=== PATIENT | female | born 1945 | race Caucasian/White ===

== ENCOUNTER 2017-02-27 03:58 | Observation (INO) | payer MEDICARE ==
[2017-02-27 06:12] LABS: Troponin I 0.011 ng/mL (< 0.028)
[2017-02-27 06:34] VITALS: BMI 26.8
[2017-02-27] MEDS ORDERED: Ondansetron ODT 4 MG TAB PO PRN (07:37)
[2017-02-27] MEDS ORDERED: Calcium Carbonate 500 MG ChewTAB PO PRN (07:37)
[2017-02-27] MEDS ORDERED: Acetaminophen 325 MG TAB PO PRN (07:37)
[2017-02-27] MEDS ORDERED: Nitroglycerin 0.4 MG TAB (25 Tab Bottle) PO PRN (07:37)
[2017-02-27] MEDS ORDERED: Ondansetron HCl/PF 4 MG/2 ML Vial IVP PRN (07:37)
[2017-02-27] MEDS ORDERED: Senokot 8.6 MG TAB PO PRN (07:37)
[2017-02-27] MEDS ORDERED: HYDROcodone/Acetaminophen 10/325 mg Tablet PO PRN (07:40)
--- NOTE | 2017-02-27 07:52 | PDOC.EVN ---
Event Note - Event Note Event Note: Patient seen and examined. Note dictated. Full code. DPOA - makes her own dec with the help of family.
--- NOTE | 2017-02-27 08:13 | HP ---
DATE OF ADMISSION: 02/27/2017 PRIMARY CARE PHYSICIAN: Dr. Roy. PRIMARY LINE MANAGER: Dr. Siegel. REASON FOR COMPLAINT: Chest discomfort. HISTORY OF PRESENT ILLNESS: Patient is a 71-year-old female with coronary artery disease status pos t CABG, colon cancer on chemotherapy, hypertension, and hyperlipidemia who presented to the emergenc y room with chest discomfort. She initially presented to [facility] and was transferred to [facility] facility for hospital admission. The chest discomfort woke her up from sleep last night. It was substernal, moderate to severe in in tensity, sharp in nature, radiating to bilateral ribs on either side. She had transient diaphoresis along with dizziness and nausea. No syncope reported. Over the last two weeks, patient has not be en ambulating much due to generalized weakness which she attributes to chemotherapy. She denies any lower extremity swelling, pain in the legs, orthopnea or paroxysmal nocturnal dyspnea. No fevers o r chills reported. No heartburn or vomiting reported. In the emergency room, she received GI cocktail with aspirin, Zofran, morphine, and sublingual nitro glycerin after which her pain completely resolved. PAST MEDICAL HISTORY: 1. Coronary artery disease, status post CABG. Her last cath was in 2014. She is currently on aspi rin and Plavix. 2. Hypertension. 3. Hyperlipidemia. 4. Colon cancer on chemotherapy. 5. 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 PAST SURGICAL HISTORY: 1. Coronary artery bypass grafting. 2. MediPort placement. 3. Colectomy. 4. Hysterectomy. 5. Nose surgery. ALLERGIES: No known drug allergies. CURRENT HOME MEDICATIONS: Aspirin 81 mg daily, Plavix 75 mg daily, Lipitor 40 mg at bedtime, carved ilol 12.5 mg b.i.d., cetirizine 10 mg daily, Dina 180 mg daily, Neurontin 300 mg three times demian y, [place] as needed, hydrochlorothiazide 25 mg daily, lisinopril 20 mg daily, sublingual nitroglyceri n as needed, and omeprazole 20 mg daily. SOCIAL HISTORY: Patient currently lives at home. Denies current use of smoking, alcohol or drug us e. FAMILY HISTORY: Positive for heart disease and malignancy. REVIEW OF SYSTEMS: The following complete review of systems was negative, unless otherwise mentione d in the HPI or below: Constitutional: Weight loss or gain, ability to conduct usual activities. Skin: Rash, itching. Eyes: Double vision, pain. ENT/Mouth: Nose bleeding, neck stiffness, pain, tenderness. Cardiovascular: Palpitations, dyspnea on exertion, orthopnea. Respiratory: Shortness of breath, wheezing, cough, hemoptysis, fever or night sweats. Gastrointestinal: Poor appetite, abdominal pain, heartburn, nausea, vomiting, constipation, or diar andres. Genitourinary: Urgency, frequency, dysuria, nocturia. Musculoskeletal: Pain, swelling. Neurologic/Psychiatric: Anxiety, depression. Allergy/Immunologic: Skin rash, bleeding tendency. PHYSICAL EXAMINATION: VITAL SIGNS: Temperature 98.1, pulse rate of 86, respiration 18, blood pressure 146/81 with O2 satu ration 95% on room air. GENERAL: A 71-year-old female in no apparent distress. Chest discomfort resolved. HEENT: Head is atraumatic, normocephalic. Sclerae are anicteric. Moist mucous membranes. No oral lesion. NECK: Supple, no JVD, no carotid bruit. LUNGS: Clear to auscultation bilaterally. HEART: S1 and S2 present. Regular rate and rhythm. No murmurs, rubs or gallops appreciated. ABDOMEN: Soft, nontender, bowel sounds present. EXTREMITIES: No edema or calf tenderness. NEUROLOGIC: Grossly nonfocal, moves all four extremities. PSYCHIATRY: Alert, awake, and oriented x3. SKIN: Warm and dry. LYMPH NODES: No palpable lymph nodes in the neck. PERIPHERAL VASCULAR: Radial pulses palpable bilaterally. MUSCULOSKELETAL: No joint swelling or tenderness. LABORATORY FINDINGS AND IMAGIN. Troponins were normal. Electrolytes in normal range. CBC showed WBC 4.6 with hemoglobin 10.9, platelet 158, and creatinine was 0.89 with BUN 12. BNP 67.9. 2. Chest x-ray by my review was negative for infiltrate or edema. 3. EKG by my review showed S1, Q3, T3 pattern with nonspecific ST-T wave changes in the lateral loni ds. IMPRESSION: 1. Chest discomfort. Her two sets of troponins have been negative. Due to abnormal EKG with S1, Q 3, T3 pattern, we will rule out pulmonary embolism with CT angiogram of the chest. We will start he r on gentle IV hydration due to contrast. We will resume her aspirin and Plavix with beta riccardo a nd statins. We will hold HCTZ and continue lisinopril for now. The patient will be kept n.p.o. Ca rdiology, Dr. Siegel will be consulted. 2. History of colon cancer with last chemotherapy 2 weeks ago. 3. Hypertension. Plan as discussed above. 4. Hyperlipidemia as discussed above. 5. Seasonal allergies. 6. Chronic kidney disease stage 2. Plan of care was discussed with the patient. She stated understanding.
[2017-02-27] MEDS ORDERED: Aspirin 325 MG TAB PO SCH (09:00)
[2017-02-27] MEDS: Sodium Chloride 0.9% 1,000 ML IV SCH ×2 (09:10→19:28)
[2017-02-27] MEDS: Clopidogrel Bisulfate 75 MG TAB PO SCH (09:12)
[2017-02-27] MEDS: Aspirin 81 mg Enteric Coated Tablet PO SCH (09:12)
[2017-02-27] MEDS: Carvedilol 6.25 MG TAB PO SCH ×2 (09:12→20:54)
[2017-02-27] MEDS: Gabapentin 300 MG CAP PO SCH ×3 (09:12→20:54)
[2017-02-27] MEDS: Lisinopril 20 MG TAB PO SCH (09:13)
[2017-02-27] MEDS: Loratadine 10 MG TAB PO SCH (09:13)
[2017-02-27] MEDS: Famotidine 20 MG TAB PO SCH ×2 (09:13→20:54)
--- NOTE | 2017-02-27 11:12 | CT ---
CT PULMONARY ANGIOGRAM WITH IV CONTRAST AND 3D POSTPROCESSING: Date: 02/27/17 HISTORY: 71-year-old female with colon cancer, shortness of breath, and chest pain. FINDINGS: The pulmonary arterial vasculature is well opacified without filling defects to suggest pulmonary em bolism. The thoracic aorta is also well opacified without aneurysm or dissection. No pleural or yani cardial effusions are seen. Numerous bilateral parenchymal lung nodules are noted (measuring up to 1 .0 cm), consistent with pulmonary metastasis. There are degenerative changes in the spine. There are postop changes of median sternotomy. A right-sided Port-A-Cath is present. Upper abdominal tomogram s demonstrate a stable left adrenal nodule since CT abdomen and pelvis of 10/12/16. There is a low d ensity lesion in the inferior aspect of the right lobe of the liver, also suspicious for metastatic disease. IMPRESSION: 1. No CT evidence of pulmonary embolism. 2. Extensive bilateral pulmonary metastases. 3. Liver metastasis. 4. Stable left adrenal nodule since 10/12/16. POS: [facility]
[2017-02-27 12:05] LABS: Troponin I 0.021 ng/mL (< 0.028)
[2017-02-27] MEDS ORDERED: Iopamidol 370 76% 100 ML VIAL ONE (15:42)
[2017-02-27] MEDS ORDERED: Communication Order-Pharmacy FS SCH (18:30)
[2017-02-27] MEDS ORDERED: Atorvastatin Calcium 40 MG TAB PO SCH (21:00)
--- NOTE | 2017-02-27 22:02 | CON ---
DATE OF CONSULTATION: 02/27/2017 Ms. Mcfarlane is a pleasant patient with a history of coronary artery disease and previous bypass surge ry. She has had multiple episodes of severe chest pain. She is having severe chest pain in 07/2014 . Ultimately, she underwent cardiac catheterization and was found to have essentially three-vessel coronary artery disease with a proximal LAD lesion, but she had a patent vein graft to a diagonal an d internal mammary to LAD. Circumflex small with some distal disease. Right coronary is occluded a nd filled by collaterals from the left. The patient had some episodes of severe chest pain a few months ago here in the hospital, but then d id well, but then she had recurrent severe chest pain prompting this admission. The patient has had a colon cancer, is undergoing maintenance chemotherapy according to the patient. PHYSICAL EXAMINATION: VITAL SIGNS: Blood pressure 103/51, pulse 70, regular. LUNGS: Clear. CARDIAC: Normal S1, normal S2. ABDOMEN: Soft, nontender. EXTREMITIES: No edema. EKG sinus rhythm with T-wave inversions anteriorly. ASSESSMENT: 1. Recurrent chest tightness. Clinically sounds like unstable angina. 2. Previous bypass surgery. 3. Colon cancer, metastatic. PLAN: Intractable and recurrent pain, we are proceeding with catheterization. Discussed risks of s elvin, heart attack, IODINE allergy, loss of blood supply to the leg or kidney, stent thrombosis, st ent restenosis. She understands and wishes to proceed.
[2017-02-28] MEDS: Loratadine 10 MG TAB PO SCH (05:00)
[2017-02-28] MEDS: Aspirin 81 mg Enteric Coated Tablet PO SCH (05:00)
[2017-02-28] MEDS: Carvedilol 6.25 MG TAB PO SCH (05:00)
[2017-02-28] MEDS: Gabapentin 300 MG CAP PO SCH (05:00)
[2017-02-28] MEDS: Famotidine 20 MG TAB PO SCH (05:00)
[2017-02-28] MEDS: Clopidogrel Bisulfate 75 MG TAB PO SCH (05:00)
[2017-02-28] MEDS: Lisinopril 20 MG TAB PO SCH (05:03)
[2017-02-28 05:44] LABS: #Eosinphils 0.1 thou/uL (0.0-0.7); #Lymphocytes 1.1 thou/uL (1.20-3.40); #Monocytes 0.4 thou/uL (0.11-0.59); #Neutrophils 0.9 thou/uL (1.40-6.50); %Basophils 0.5 % (0.0-1.0); %Eosinophils 2.2 % (0.0-10.0); %Lymphocytes 46.5 % (21.0-51.0); %Monocytes 14.8 % (0.0-10.0); Hematocrit 28.6 % (36.0-47.0); Mean Platelet Volume 6.8 fL (7.4-10.4); Red Blood Cell (RBC) Count 2.91 mill/uL (4.20-5.40); White Blood Cell (WBC) Count 2.5 thou/uL (4.8-10.8)
[2017-02-28] MEDS ORDERED: Diazepam 5 MG TAB PO SCH (06:00)
[2017-02-28 06:02] LABS: Anion Gap 9 mmol/L (10-20); BUN (Urea Nitrogen) 12 mg/dL (9.8-20.1); BUN/Creatinine Ratio 14.81; Calc. Creatinine Clearance 69 mL/min (70-130); Carbon Dioxide 27 mmol/L (23-31); Chloride 109 mmol/L (98-107); Estimated GFR-MDRD 70; Phosphorus 3.3 mg/dL (2.3-4.7)
[2017-02-28] MEDS ORDERED: Fentanyl 100 MCG/2 ML VIAL ONE (07:09)
[2017-02-28] MEDS ORDERED: Midazolam HCl 2 mg/2 ml Vial ONE (07:09)
[2017-02-28] MEDS ORDERED: Nitroglycerin 0.4 MG TAB (25 Tab Bottle) SL PRN (07:43)
[2017-02-28] MEDS ORDERED: Acetaminophen/Codeine 30-300mg Tablet PO PRN ×2 (07:43)
[2017-02-28] MEDS ORDERED: traMADol HCl 50 MG TAB PO PRN (07:43)
[2017-02-28] MEDS ORDERED: Sodium Chloride 0.9% 200 ML IV SCH (07:45)
[2017-02-28 12:31] VITALS: BP 126/62; TEMP 98.2
[2017-02-28] MEDS ORDERED: Iopamidol 370 76% 100 ML VIAL ONE (14:14)
--- NOTE | 2017-02-28 14:17 | DIS ---
DATE OF DISCHARGE: 02/28/2017 DISCHARGE DISPOSITION: Home. FOLLOWUP: 1. Follow up with primary care physician, Dr. Roy in 1 week. 2. Follow up with airport baggage screener, Dr. Siegel in 3-4 weeks. ALLERGIES: No known drug allergies. DISCHARGE MEDICATIONS: Same as admission medications; 1. Sublingual nitroglycerin as needed. 2. Aspirin 81 mg daily. 3. Plavix 75 mg daily. 4. Lipitor 40 mg at bedtime. 5. Carvedilol 12.5 mg b.i.d. 6. Zyrtec 10 mg daily. 7. Dina 180 mg daily. 8. gabapentin 300 mg three times daily. 9. [place] as needed. 10. Hydrochlorothiazide 25 mg daily. 11. Lisinopril 20 mg daily. 12. Prilosec over the counter 20 mg daily. INPATIENT CONSULTANTS: Cardiology, Dr. Siegel. INPATIENT PROCEDURES: The patient underwent cardiac catheterization earlier today. Official report pending at this time. The patient was seen and examined on the day of discharge, denies any new complaints. No chest pain , shortness of breath or palpitations. SIGNIFICANT LABS: Maximum troponin 0.030. CBC showed WBC 2.5 with hemoglobin 9.4, hematocrit 28.6 and platelet count 141. BRIEF HOSPITAL COURSE: Patient is a 71-year-old female with coronary artery disease, status post CA BG, colon cancer on chemotherapy, hypertension and hyperlipidemia, presented to the emergency room w ith chest discomfort. Please refer to the history and physical dated 02/27/2017 for further details . The patient was admitted to the hospital with a diagnosis of chest discomfort, rule out acute arango ry syndrome. Due to abnormal EKG, she underwent a CT angiogram of the chest, which was negative for pulmonary embolism. It showed extensive bilateral pulmonary metastasis with liver metastasis. She was seen by Cardiology, Dr. Siegel. Cardiac catheterization was performed earlier today. Official report of catheterization is pending at this time. The patient has been cleared by Cardiology for discharge. Refill of sublingual nitroglycerin was provided. She will follow up with Oncology as sc heduled for chemotherapy. FINAL DIAGNOSES: 1. Chest discomfort. 2. Abnormal EKG. 3. Elevated troponins, probably secondary to demand ischemia. 4. History of colon cancer with metastasis. 5. Hypertension. 6. Hyperlipidemia. 7. Seasonal allergies. 8. Chronic kidney disease stage 2. 9. Chronic anemia. Plan of care was discussed with the patient. She stated understanding.
--- NOTE | 2017-04-14 15:00 | EKG ---
Test Reason : Blood Pressure : / mmHG Vent. Rate : 077 BPM Atrial Rate : 077 BPM P-R Int : 108 ms QRS Dur : 100 ms QT Int : 426 ms P-R-T Axes : 050 046 -17 degrees QTc Int : 482 ms Sinus rhythm with sinus arrhythmia with short DC Inferior infarct , age undetermined T wave abnormality, consider anterolateral ischemia Abnormal ECG Confirmed by JOCELYN JOHNSON, BOBBY Gu ([id number]), editorial cartoonist YOKASTA NAILS ([id number]) on 04/14/2017 2:59:51 PM Referred By: Confirmed By:BOBBY BANKS MD
== END 2017-02-28 14:51 | disposition home or self-care (01) ==
LOC: ERS 03:58 → 2SW 05:06
PROVIDERS: ADMIT Family Medicine; ATTEND Family Medicine
DX: R07.89 Other chest pain (principal); R94.31 Abnormal electrocardiogram [ECG] [EKG]; R74.8 Abnormal levels of other serum enzymes; C18.9 Malignant neoplasm of colon, unspecified; C79.9 Secondary malignant neoplasm of unspecified site; E78.5 Hyperlipidemia, unspecified; J30.2 Other seasonal allergic rhinitis; I12.9 Hypertensive chronic kidney disease with stage 1 through stage 4 chronic kidney disease, or unspecified chronic kidney disease; N18.2 Chronic kidney disease, stage 2 (mild); D64.9 Anemia, unspecified; I25.10 Atherosclerotic heart disease of native coronary artery without angina pectoris; Z79.02 Long term (current) use of antithrombotics/antiplatelets; Z79.82 Long term (current) use of aspirin; Z79.899 Other long term (current) drug therapy; Z95.1 Presence of aortocoronary bypass graft; Z95.828 Presence of other vascular implants and grafts; Z90.49 Acquired absence of other specified parts of digestive tract; Z90.710 Acquired absence of both cervix and uterus; Z98.890 Other specified postprocedural states; Z87.891 Personal history of nicotine dependence
CPT/HCPCS: 71275; 76942; 80069; 84484; 85025; 93005; 93459; 93798; 94760; 96360; 96361 ×2; 99285; C1769; G0378; 36415; 99152; J1644; J2250; J3010

== ENCOUNTER 2017-05-19 14:18 | Inpatient (IN) | payer MEDICARE ==
[2017-05-19] MEDS ORDERED: Acetaminophen 500 MG TAB ONE (15:07)
[2017-05-19 15:14] LABS: Hemoglobin 10.6 g/dL (12.0-16.0); Mean Corpuscular HGB CONC 33.7 g/dL (32.0-36.0); Mean Corpuscular Hemoglobin 32.6 pg (27.0-31.0); Mean Corpuscular Volume 96.5 fl (81.0-99.0); Mean Platelet Volume 6.9 fL (7.4-10.4); Platelet Count 139 thou/uL (130-400); RBC Distribution Width 14.3 % (11.5-14.5); Red Blood Cell (RBC) Count 3.26 mill/uL (4.20-5.40); White Blood Cell (WBC) Count 1.4 thou/uL (4.8-10.8)
[2017-05-19 15:36] LABS: Troponin I 0.025 ng/mL (< 0.028)
[2017-05-19 15:43] LABS: ALT (SGPT) Less than 7 U/L (8-55); AST (SGOT) 15 U/L (5-34); Albumin 3.3 g/dL (3.4-4.8); Alkaline Phosphatase 148 U/L (40-150); Anion Gap 12 mmol/L (10-20); BUN (Urea Nitrogen) 12 mg/dL (9.8-20.1); Bilirubin, Total 1.2 mg/dL (0.2-1.2); Calc. Creatinine Clearance 0 mL/min (70-130); Calcium 8.9 mg/dL (7.8-10.44); Carbon Dioxide 22 mmol/L (23-31); Chloride 104 mmol/L (98-107); Estimated GFR-MDRD 80; Glucose 117 mg/dL (83-110); Potassium 3.1 mmol/L (3.5-5.1); Protein, Total 5.3 g/dL (6.0-8.3); Sodium 135 mmol/L (136-145)
[2017-05-19 15:47] LABS: Anisocytosis SLIGHT = 6-15 cells (100X) (0-5/hpf); Band 12 % (5-11); Lymphocytes 26 % (21-51); MDiff Complete? YES; Monocytes 16 % (0-10); Neutrophil 40 % (42-75); Nucleated RBC 2 % (0); Ovalocytes SLIGHT = 2-5 cells (100X) (0-1/hpf); PLT Morphology Comment Appears Adequate; Polychromasia SLIGHT = 2-3 cells (100X) (0-2/hpf); Reactive Lymphocytes 6 % (0-10)
--- NOTE | 2017-05-19 15:50 | RAD ---
CHEST HISTORY: Emergency exam. COMPARISON: Chest radiograph 04/30. FINDINGS: Multilobar nodular densities are present throughout the lungs. Port-A-Cath is placed with tip at the mid SVC. The cardiac and mediastinal contours are similar. IMPRESSION: Similar appearance to the innumerable pulmonary nodules suggestive of metastatic disease. No new foca l air space opacity. POS: [facility]
[2017-05-19 16:09] LABS: Bilirubin Negative (Negative); Blood, Urine Negative (Negative); Clarity CLEAR (Clear); Glucose, Urine (Dipstick) Negative (Negative); Leukocyte Negative (Negative); Nitrite Negative (Negative); Protein, Urine (Dipstick) Negative (Neg-Trace); Specific Gravity, Urine 1.013 (1.002-1.036); Urobilinogen 0.2 mg/dL (0.2-1.0)
[2017-05-19] MEDS ORDERED: Cefepime 2 GM, Syringe 2.5 ML in Sterile Water 10 ML SLOW IVP ONE (17:15)
[2017-05-19] MEDS ORDERED: Cefepime 2 GM/10 ML SYR ONE ×2 (18:00→18:01)
[2017-05-19] MEDS ORDERED: Nitroglycerin 0.4 MG TAB (25 Tab Bottle) SL PRN (18:11)
[2017-05-19] MEDS ORDERED: Guaifenesin DM 100-10/5 ML UDCUP PO PRN (18:11)
[2017-05-19] MEDS ORDERED: Albuterol Sulfate 1.25 MG/3 ML NEB NEB PRN (18:45)
--- NOTE | 2017-05-19 19:05 | HP ---
REASON FOR ADMISSION: Fever of 104.5 rectal, on chemotherapy for colon cancer. HISTORY OF PRESENT ILLNESS: The patient gives history of being lethargic all day and was sleeping. Her home health nurse came around 2:00 p.m. and measured her temperature to be 105 degrees. She imme diately called EMS and the patient was transferred here. She also gives history of falling 2 times t his morning onto her , both times with no injuries as such. She has no complaints of cough or expectoration. No complaints of urinary frequency or urgency. She states she was normal yesterday with no untoward events. She normally walks by herself and uses a cane for going long distance. She did not receive chemotherapy last Monday due to her white count being 1.4. The plan was to give her chemo this Monday if the counts had come up. She has no wounds or sore anywhere. PAST MEDICAL AND SURGICAL HISTORY: History of metastatic colon cancer, coronary artery disease with prior CABG, recent cardiac catheterization done in February of last year, hypertension, dyslipidemia, MediPort, history of colectomy, hysterectomy, and nose surgery. CURRENT MEDICATIONS: The patient is on aspirin 81 mg p.o. daily, Lipitor 40 mg p.o. at bedtime, Core g 12.5 mg p.o. twice daily, Plavix 75 mg daily, gabapentin 300 mg p.o. 3 times daily, hydrochlorothia zide 25 mg daily, lisinopril 20 mg daily, omeprazole 20 mg daily. ALLERGIES: No known drug allergies. PERSONAL HISTORY: Does not abuse alcohol or drugs. No history of smoking. Lives with her . FAMILY HISTORY: Mother of small cell cancer and its complications at the age of 71 years. Maite stark at the age of 74 years from massive OR. CODE STATUS: FULL. Power of bankruptcy attorney is her . REVIEW OF SYSTEMS: The following complete review of systems was negative, unless otherwise mentioned in the HPI or below: Constitutional: Weight loss or gain, ability to conduct usual activities. Skin: Rash, itching. Eyes: Double vision, pain. ENT/Mouth: Nose bleeding, neck stiffness, pain, tenderness. Cardiovascular: Palpitations, dyspnea on exertion, orthopnea. Respiratory: Shortness of breath, wheezing, cough, hemoptysis, fever or night sweats. Gastrointestinal: Poor appetite, abdominal pain, heartburn, nausea, vomiting, constipation, or diarrhea. Genitourinary: Urgency, frequency, dysuria, nocturia. Musculoskeletal: Pain, swelling. Neurologic/Psychiatric: Anxiety, depression. Allergy/Immunologic: Skin rash, bleeding tendency. PHYSICAL EXAMINATION: GENERAL: The patient is a 71-year-old female who is currently not in any acute distress. VITAL SIGNS: Blood pressure 120/54, pulse 110 per minute, respiratory rate 18 per minute, temperatur e 104.5 degrees rectal, saturating 95% on room air. NECK: Supple, no elevated JVD. HEENT: Eyes: Extraocular muscles intact. Pupils reacting to light. Oral cavity mucous membranes a re moist. No exudates or congestion. CARDIOVASCULAR: S1, S2 heard. Tachycardic, no murmur. RESPIRATORY: Air entry 1+ bilaterally. No rales or rhonchi. ABDOMEN: There is a hard mass felt in the right lower quadrant, which patient says is her cancer, wh ich has been there for quite sometime. No rigidity or guarding. Bowel sounds are heard. EXTREMITIES: No peripheral edema or calf tenderness. VASCULAR SYSTEM: Peripheral pulses 1+ bilateral. No ischemic ulcerations or gangrene. CENTRAL NERVOUS SYSTEM: No gross focal deficits seen. The patient is alert, awake, oriented well. PSYCHIATRIC: The patient's mood is euthymic. No hallucinations or delusions. LABORATORY AND X-RAY FINDINGS: EKG done shows sinus tachycardia at 112 beats per minute. There are Q-waves seen in lead II, III, aVF. White count 1.4, H&H 10 and 31, platelet count 139 with MCV of 96 and 40% neutrophils, 26% lymphocytes, and 12% bands. Sodium 135, potassium 3.1, serum bicarbonate 2 2, glucose 117, albumin 3.3. Cardiac enzymes are negative. Urinalysis is negative for any infection . Influenza A and B antigens are negative. Chest x-ray shows metastatic disease and shows no acute infiltrate as such. CLINICAL IMPRESSION AND PLAN: The patient will be admitted to oncology floor for fever of 104.5 degr ees and being on chemotherapy for colon cancer. Kerr cultures will be obtained including blood and ur ine. At present, there is no clear source of any infection as such now. She will be on cefepime and vancomycin. Normal saline at 70 mL per hour. Her white count is still 1.4 and we will give a dose of Neupogen. We will continue her aspirin, Plavix, Lipitor, Coreg, gabapentin for chemotherapy-induc ed neuropathy and Protonix as before. We will also consult Dr. Lebron, her oncologist, during her s primitivo here. We will obtain a viral PCR as well. We will continue to closely monitor her on oncology f mitul. Code status was discussed and she is a FULL CODE.
[2017-05-19] MEDS: Sodium Chloride 0.9% 1,000 ML IV SCH (20:26)
[2017-05-19 20:29] VITALS: BMI 22.8
[2017-05-19] MEDS ORDERED: Vancomycin HCl 1.25 GM in Sodium Chloride 0.9% 250 ML 250 ML IVPB SCH (21:00)
[2017-05-19] MEDS ORDERED: Cefepime 1 GM in Sodium Chloride 0.9% 100 ML IVPB SCH (21:00)
[2017-05-19] MEDS: Atorvastatin Calcium 40 MG TAB PO SCH (21:23)
[2017-05-19] MEDS: Gabapentin 300 MG CAP PO SCH (21:23)
[2017-05-19] MEDS: Carvedilol 6.25 MG TAB PO SCH (21:23)
[2017-05-19] MEDS: GRANIX 300 MCG/0.5 ML VIAL SC SCH (21:24)
[2017-05-19] MEDS: Docusate 100 MG CAP PO SCH (21:24)
[2017-05-19] MEDS ORDERED: Albuterol Sulfate 1.25 MG/3 ML NEB NEB SCH (23:00)
[2017-05-20] MEDS: Vancomycin HCl 1 GM in Premix Bag 1 BAG IVPB SCH ×2 (03:41→15:43)
[2017-05-20] MEDS: Cefepime 1 GM, Admixture Fee 1 EACH in Sterile Water 10 ML SLOW IVP SCH ×2 (06:17→17:49)
[2017-05-20 06:44] LABS: Band 12 % (5-11); Eosinophils 3 % (0-10); Hemoglobin 9.5 g/dL (12.0-16.0); Lymphocytes 41 % (21-51); MDiff Complete? YES; Mean Corpuscular HGB CONC 33.4 g/dL (32.0-36.0); Mean Corpuscular Hemoglobin 32.3 pg (27.0-31.0); Mean Corpuscular Volume 96.5 fl (81.0-99.0); Mean Platelet Volume 7.5 fL (7.4-10.4); Metamyelocyte 1 % (0-0); Monocytes 32 % (0-10); Neutrophil 11 % (42-75); PLT Morphology Comment Appears Decreased; Platelet Count 104 thou/uL (130-400); RBC Distribution Width 14.4 % (11.5-14.5); Red Blood Cell (RBC) Count 2.95 mill/uL (4.20-5.40); White Blood Cell (WBC) Count 2.4 thou/uL (4.8-10.8)
[2017-05-20 06:50] LABS: ALT (SGPT) Less than 7 U/L (8-55); AST (SGOT) 13 U/L (5-34); Albumin 2.7 g/dL (3.4-4.8); Alkaline Phosphatase 118 U/L (40-150); Anion Gap 10 mmol/L (10-20); BUN (Urea Nitrogen) 11 mg/dL (9.8-20.1); Calc. Creatinine Clearance 72 mL/min (70-130); Calcium 8.6 mg/dL (7.8-10.44); Carbon Dioxide 24 mmol/L (23-31); Chloride 108 mmol/L (98-107); Estimated GFR-MDRD 85; Globulin 1.7 g/dL (2.4-3.5); Glucose 100 mg/dL (83-110); Protein, Total 4.4 g/dL (6.0-8.3); Sodium 139 mmol/L (136-145)
[2017-05-20 06:54] LABS: Potassium 2.9 mmol/L (3.5-5.1)
[2017-05-20] MEDS ORDERED: Potassium Chloride 20 MEQ TAB PO SCH (08:30)
[2017-05-20] MEDS: Gabapentin 300 MG CAP PO SCH ×3 (08:59→19:39)
[2017-05-20] MEDS: Carvedilol 6.25 MG TAB PO SCH ×2 (09:00→19:39)
[2017-05-20] MEDS: Docusate 100 MG CAP PO SCH ×2 (09:03→19:43)
[2017-05-20] MEDS: Aspirin 81 mg Enteric Coated Tablet PO SCH (11:12)
[2017-05-20] MEDS: Clopidogrel Bisulfate 75 MG TAB PO SCH (11:12)
[2017-05-20] MEDS: Enoxaparin Sodium 40 MG/0.4 ML SYRINGE SC SCH (11:13)
[2017-05-20] MEDS: HYDROcodone/Acetaminophen 10/325 mg Tablet PO PRN ×2 (11:59→18:45)
--- NOTE | 2017-05-20 12:04 | PDOC.PN ---
- Subjective Encounter Start Date: 05/20/17 Encounter Start Time: 11:00 Subjective: feels better, no fever -: slept well, ate her breakfast -: no complaints - Objective Resuscitation Status: Resuscitation Status FULL:Full Resuscitation MAR Reviewed: Yes Vital Signs & Weight: Vital Signs (12 hours) Temp Pulse Resp BP BP Pulse Ox 05/20/17 11:50 98.7 F 70 20 106/53 L 97 05/20/17 09:00 119/56 L 05/20/17 08:00 99.4 F 78 20 05/20/17 07:52 99.4 F 78 20 119/56 L 96 05/20/17 03:45 98.2 F 75 12 101/51 L 95 Weight Weight 133 lb I&O: 05/19/17 05/20/17 05/21/17 06:59 06:59 06:59 Intake Total 1710 Balance 1710 Result Diagrams: 05/20/17 05:34 05/20/17 05:33 Phys Exam - Physical Examination HEENT: PERRLA, moist MMs Neck: no JVD, supple Respiratory: no wheezing, no rales Cardiovascular: RRR, no significant murmur Gastrointestinal: soft, no distention, positive bowel sounds chronic mass and pain over RLQ Musculoskeletal: no edema, pulses present Neurological: non-focal, moves all 4 limbs Psychiatric: A&O x 3 Dx/Plan (1) Sepsis Code(s): A41.9 - SEPSIS, UNSPECIFIED ORGANISM Status: Acute Qualifiers: Sepsis type: sepsis due to unspecified organism Qualified Code(s): A41.9 - Sepsis, unspecified organism (2) CAD (coronary artery disease) Code(s): I25.10 - ATHSCL HEART DISEASE OF [place] CORONARY ARTERY W/O ANG PCTRS Status: Chronic Qualifiers: Coronary Disease-Associated Artery/Lesion type: bypass graft [place] vs. transplanted heart: [place] heart Associated angina: without angina Qualified Code(s): I25.810 - Atherosclerosis of coronary artery bypass graft(s) without angina pectoris Comment: h/o CABG. Last Cath in 2014 Dr Siegel (3) Colon cancer Code(s): C18.9 - MALIGNANT NEOPLASM OF COLON, UNSPECIFIED Status: Chronic Qualifiers: Colon location: unspecified part of colon Qualified Code(s): C18.9 - Malignant neoplasm of colon, unspecified (4) Dyslipidemia Code(s): E78.5 - HYPERLIPIDEMIA, UNSPECIFIED Status: Chronic (5) Hypertension Code(s): I10 - ESSENTIAL (PRIMARY) HYPERTENSION Status: Chronic Qualifiers: Hypertension type: essential hypertension Qualified Code(s): I10 - Essential (primary) hypertension (6) Protein-calorie malnutrition, moderate Code(s): E44.0 - MODERATE PROTEIN-CALORIE MALNUTRITION Status: Chronic - Plan await urine culture report -: prelim blood is -ve -: is on cefepime and vanc -: wbc now is 2.4, watch for platelets -: replace potassium, dc iv fluids * . Review of Systems - Medications/Allergies Allergies/Adverse Reactions: Allergies Allergy/AdvReac Type Severity Reaction Status Date / Time No Known Allergies Allergy Verified 05/19/17 20:35 Medications: Current Medications Acetaminophen (Tylenol) 650 mg PO Q4H PRN PRN Reason: Headache/Fever or Pain Hydrocodone Bitart/Acetaminophen ([place] 10/325) 1 tab PO Q6H PRN PRN Reason: Moderate Pain (4-6) Last Admin: 05/20/17 11:59 Dose: 1 tab Albuterol Sulfate (Albuterol Sulfate) 1.25 mg NEB [id number] PRN PRN Reason: sob Aspirin (Ecotrin) 81 mg PO DAILY [facility] Last Admin: 05/20/17 11:12 Dose: 81 mg Atorvastatin Calcium (Lipitor) 40 mg PO HS [facility] Last Admin: 05/19/17 21:23 Dose: 40 mg Carvedilol (Coreg) 12.5 mg PO BID [facility] Last Admin: 05/20/17 09:00 Dose: 12.5 mg Clopidogrel Bisulfate (Plavix) 75 mg PO DAILY [facility] Last Admin: 05/20/17 11:12 Dose: 75 mg Docusate Sodium (Colace) 100 mg PO BID [facility] Last Admin: 05/20/17 09:03 Dose: Not Given Enoxaparin Sodium (Lovenox) 40 mg SC 0900 [facility] Last Admin: 05/20/17 11:13 Dose: 40 mg Gabapentin (Neurontin) 300 mg PO TID [facility] Last Admin: 05/20/17 08:59 Dose: 300 mg Guaifenesin/Dextromethorphan (Robitussin Dm) 15 ml PO Q4H PRN PRN Reason: Cough Vancomycin HCl 1 gm/ Device 200 mls @ 200 mls/hr IVPB 0400,1600 [facility] Last Admin: 05/20/17 03:41 Dose: 200 mls Cefepime HCl 1 gm/Miscellaneous Medication 1 each/ Sterile Water 10 mls @ 120 mls/hr SLOW IVP 0600,1800 [facility] Last Admin: 05/20/17 06:17 Dose: 10 mls Nitroglycerin (Nitrostat) 0.4 mg SL Q5MIN PRN PRN Reason: Chest Pain Pantoprazole Sodium (Protonix) 40 mg PO DAILY [facility] Last Admin: 05/20/17 09:01 Dose: 40 mg Potassium Chloride (Klor-Con) 40 meq PO Q6H [facility] Stop: 05/21/17 14:01 Sodium Chloride (Flush - Normal Saline) 10 ml IVF Q12HR [facility] Last Admin: 05/20/17 09:02 Dose: 10 ml Sodium Chloride (Flush - Normal Saline) 10 ml IVF PRN PRN PRN Reason: Saline Flush Tbo-Filgrastim (Granix) 300 mcg SC Q24H [facility] Last Admin: 05/19/17 21:24 Dose: 300 mcg
[2017-05-20] MEDS: Sodium Chloride 0.9% 1,000 ML IV SCH (12:39)
--- NOTE | 2017-05-20 14:51 | CON ---
DATE OF CONSULTATION: 05/20/2017 HISTORY OF PRESENT ILLNESS: Ms. Mcfarlane is a 71-year-old female who has a history of metastatic color ectal cancer, status post chemotherapy approximately 2 weeks ago who was found at home by her home he alth nurse to sleep in bed with a fever of 105. She was transported immediately to the emergency [facility] and was found to be neutropenic with a rectal temperature of 104.5. She was placed on IV antibioti cs and cultures were drawn. She is now growing gram-negative rods in her urine. She has improved gr eatly with IV fluids as well as IV antibiotics and today complains only of right lower quadrant pain. She is up eating and is feeling much better. Her counts have started to recover and she says she f eels like they have and feels much better. She denies any bleeding. No fevers as of today. PAST MEDICAL HISTORY: 1. Metastatic colorectal cancer with a history of prior hospitalization for Febrile neutropenia. 2. Coronary artery disease, status post CABG. 3. Hyperlipidemia. 4. Hypertension. CURRENT INPATIENT MEDICATIONS: 1. Tylenol p.r.n. 2. Hydrocodone 10/325 one p.o. q.4-6 hours p.r.n. 3. Albuterol p.r.n. 4. Aspirin 81 mg p.o. q. day. 5. Lipitor 40 mg p.o. at bedtime. 6. Coreg 12.5 mg p.o. b.i.d. 7. Cefepime 1 gram IV q.12 hours. 8. Plavix 75 mg p.o. q. day. 9. Colace 100 mg p.o. b.i.d. 10. Lovenox 40 mg subcu q. day. 11. Gabapentin 300 mg p.o. t.i.d. 12. Guaifenesin 15 mL p.o. q.4 hours p.r.n. 13. Nitrostat p.r.n. 14. Protonix 40 mg p.o. q. day. 15. Klor-Con 40 mEq p.o. q.6 hours. 16. Granix 300 mcg subcu q.24 hours. 17. Vancomycin 1 gram IV q.12 hours. ALLERGIES: No known drug allergies. SOCIAL HISTORY: She is here with her who is quite supportive. She denies current tobacco or alcohol use. FAMILY HISTORY: Noncontributory. REVIEW OF SYSTEMS: Otherwise, 10-point review of systems is negative. PHYSICAL EXAMINATION: VITAL SIGNS: Temperature 98.7, pulse 70, blood pressure 119/56, respirations 16 and O2 sat 97% on ro om air. GENERAL: She is alert, awake, and oriented x3, is sitting on the side of the bed, eating lunch. HEENT: Extraocular muscles are intact. Sclerae are anicteric. NECK: Supple, without lymphadenopathy. CARDIOVASCULAR: Regular rate and rhythm. LUNGS: Clear to auscultation bilaterally. No wheeze. ABDOMEN: Hypoactive bowel sounds. Soft, nontender and nondistended. She does have some tenderness in the right lower quadrant with movement and with palpation. EXTREMITIES: No edema. LABORATORY DATA: White blood cell count is up to 2.4, hemoglobin 9.5, platelets 104, 11% neutrophils , 12% bands and 41% lymphocytes. Sodium 139, potassium 2.9, chloride 108, CO2 of 24, BUN 11, creatin ine 0.6, albumin 2.7 and alkaline phosphatase 118. Urine clean-catch specimen shows gram-negative rods. Blood cultures are negative to date. ASSESSMENT: Ms. Mcfarlane is a 71-year-old female with: 1. Febrile neutropenia. 2. Urinary tract infection with gram-negative rods. 3. Hypokalemia. 4. Metastatic colorectal cancer. 5. Right lower quadrant pain. PLAN: 1. Continue IV antibiotics, stop the vancomycin. 2. Continue hydrocodone. 3. Follow blood counts closely. She can be discharged to home when her counts recover. 4. She already has a known follow up next week and we will follow her up in the office.
[2017-05-20] MEDS: Atorvastatin Calcium 40 MG TAB PO SCH (19:40)
[2017-05-20] MEDS: GRANIX 300 MCG/0.5 ML VIAL SC SCH (20:49)
[2017-05-20] MEDS ORDERED: Mag-Al 1200 mg/1200 mg/30 ML UDCUP PO PRN (22:19)
[2017-05-20] MEDS ORDERED: Ondansetron HCl/PF 4 MG/2 ML Vial IVP PRN (22:55)
[2017-05-21 04:41] LABS: Vancomycin, Trough 20.2 ug/mL
[2017-05-21 04:42] LABS: Anion Gap 9 mmol/L (10-20); BUN (Urea Nitrogen) 10 mg/dL (9.8-20.1); Calc. Creatinine Clearance 77 mL/min (70-130); Calcium 9.1 mg/dL (7.8-10.44); Carbon Dioxide 23 mmol/L (23-31); Chloride 109 mmol/L (98-107); Estimated GFR-MDRD Greater than 90; Glucose 87 mg/dL (83-110); Potassium 3.8 mmol/L (3.5-5.1); Sodium 137 mmol/L (136-145)
[2017-05-21 04:57] LABS: Band 17 % (5-11); Eosinophils 3 % (0-10); Hemoglobin 10.1 g/dL (12.0-16.0); Lymphocytes 25 % (21-51); MDiff Complete? YES; Mean Corpuscular HGB CONC 33.1 g/dL (32.0-36.0); Mean Corpuscular Hemoglobin 32.1 pg (27.0-31.0); Mean Corpuscular Volume 96.8 fl (81.0-99.0); Mean Platelet Volume 7.8 fL (7.4-10.4); Metamyelocyte 2 % (0-0); Monocytes 20 % (0-10); Myelocyte 2 % (0-0); Neutrophil 31 % (42-75); Platelet Count 123 thou/uL (130-400); RBC Distribution Width 14.3 % (11.5-14.5); Red Blood Cell (RBC) Count 3.14 mill/uL (4.20-5.40); White Blood Cell (WBC) Count 5.9 thou/uL (4.8-10.8)
[2017-05-21] MEDS: Vancomycin HCl 1 GM in Premix Bag 1 BAG IVPB SCH (05:05)
[2017-05-21] MEDS: Cefepime 1 GM, Admixture Fee 1 EACH in Sterile Water 10 ML SLOW IVP SCH ×2 (06:30→17:38)
[2017-05-21] MEDS: Clopidogrel Bisulfate 75 MG TAB PO SCH (08:30)
[2017-05-21] MEDS: Carvedilol 6.25 MG TAB PO SCH ×2 (08:30→21:14)
[2017-05-21] MEDS: Gabapentin 300 MG CAP PO SCH ×3 (08:30→21:14)
[2017-05-21] MEDS: Aspirin 81 mg Enteric Coated Tablet PO SCH (08:31)
[2017-05-21] MEDS: Enoxaparin Sodium 40 MG/0.4 ML SYRINGE SC SCH (08:32)
[2017-05-21] MEDS: Docusate 100 MG CAP PO SCH ×2 (08:33→21:17)
--- NOTE | 2017-05-21 13:12 | PDOC.PN ---
- Subjective Encounter Start Date: 05/21/17 Encounter Start Time: 13:11 Subjective: feels better today.still with some abdominla pian and nausea & poor apetite - Objective Resuscitation Status: Resuscitation Status FULL:Full Resuscitation MAR Reviewed: Yes Vital Signs & Weight: Vital Signs (12 hours) Temp Pulse Resp BP BP Pulse Ox 05/21/17 08:30 119/56 L 05/21/17 08:00 99 F 78 20 96 05/21/17 07:35 99 F 78 20 119/56 L 96 05/21/17 03:34 99.0 F 75 16 138/62 96 05/21/17 02:59 96 Weight Weight 133 lb I&O: 05/20/17 05/21/17 05/22/17 06:59 06:59 06:59 Intake Total 1710 1961 Balance 1710 1961 Result Diagrams: 05/21/17 03:12 05/21/17 03:12 Additional Labs: Microbiology 05/19/17 15:53 Urine clean catch Urine Culture - Final Klebsiella pneumoniae ssp pneu 05/19/17 14:50 Nasal swab Influenza Types A,B Direct EIA - Final 05/19/17 15:53 Urine clean catch Urine Culture - Preliminary Klebsiella pneumoniae ssp pneu 05/19/17 15:01 Venous blood - Right Hand Blood Culture - Preliminary NO GROWTH AT 48 HOURS 05/19/17 15:01 Venous blood - Right Arm Blood Culture - Preliminary NO GROWTH AT 48 HOURS Laboratory Tests 05/19/17 05/19/17 05/20/17 15:01 15:01 05:33 WBC 1.4 L Hgb 10.6 L Plt Count 139 Potassium 3.1 L 2.9 L* 05/20/17 05/21/17 05/21/17 05:34 03:12 03:12 WBC 2.4 L 5.9 Hgb 9.5 L 10.1 L Plt Count 104 L 123 L Potassium 3.8 Radiology Reviewed by me: Yes Phys Exam - Physical Examination Constitutional: NAD HEENT: PERRLA, moist MMs, sclera anicteric, oral pharynx no lesions Neck: no JVD Respiratory: no wheezing, no rales, no rhonchi, clear to auscultation bilateral Cardiovascular: RRR, no significant murmur Gastrointestinal: soft, non-tender, no distention, positive bowel sounds palapable mass LLQ c/w known Colon CA Musculoskeletal: no edema, pulses present Neurological: non-focal, normal sensation, moves all 4 limbs Psychiatric: normal affect, A&O x 3 Dx/Plan (1) Neutropenic fever Code(s): D70.9 - NEUTROPENIA, UNSPECIFIED; R50.81 - FEVER PRESENTING WITH CONDITIONS CLASSIFIED ELSEWHERE Status: Acute (2) UTI (urinary tract infection) Status: Acute Qualifiers: Urinary tract infection type: acute cystitis Hematuria presence: without hematuria Qualified Code(s): N30.00 - Acute cystitis without hematuria Comment: [place] on Cx.pope sensitive except Nitrofurantoin (3) Pancytopenia Code(s): D61.818 - OTHER PANCYTOPENIA Status: Acute (4) Sepsis Code(s): A41.9 - SEPSIS, UNSPECIFIED ORGANISM Status: Acute Qualifiers: Sepsis type: sepsis due to unspecified organism Qualified Code(s): A41.9 - Sepsis, unspecified organism (5) CAD (coronary artery disease) Code(s): I25.10 - ATHSCL HEART DISEASE OF [place] CORONARY ARTERY W/O ANG PCTRS Status: Chronic Qualifiers: Coronary Disease-Associated Artery/Lesion type: bypass graft [place] vs. transplanted heart: [place] heart Associated angina: without angina Qualified Code(s): I25.810 - Atherosclerosis of coronary artery bypass graft(s) without angina pectoris Comment: h/o CABG. Last Cath in 2014 Dr Siegel (6) Colon cancer Code(s): C18.9 - MALIGNANT NEOPLASM OF COLON, UNSPECIFIED Status: Chronic Qualifiers: Colon location: unspecified part of colon Qualified Code(s): C18.9 - Malignant neoplasm of colon, unspecified (7) Dyslipidemia Code(s): E78.5 - HYPERLIPIDEMIA, UNSPECIFIED Status: Chronic (8) Hypertension Code(s): I10 - ESSENTIAL (PRIMARY) HYPERTENSION Status: Chronic Qualifiers: Hypertension type: essential hypertension Qualified Code(s): I10 - Essential (primary) hypertension (9) Protein-calorie malnutrition, moderate Code(s): E44.0 - MODERATE PROTEIN-CALORIE MALNUTRITION Status: Chronic - Plan PT/OT, incentive spirometry, out of bed/ambulate, DVT proph w/SCDs cont Cefepime.DC vancomycin. -: WBc much improved.DC Filgrastim. -: pt scheduled for chemo tomorrow. will defer to oncology if she is cleared -: Platelet count & H/h stable and better.monitor. -: supportive care. encourage ambulation * . Review of Systems - Review of Systems Constitutional: negative: fever, chills, sweats, weakness, malaise, other ENT: negative: Ear Pain, Ear Discharge, Nose Pain, Nose Discharge, Nose Congestion, Mouth Pain, Mouth Swelling, Throat Pain, Throat Swelling, Other Respiratory: negative: Cough, Dry, Shortness of Breath, Hemoptysis, SOB with Excertion, Pleuritic Pain, Sputum, Wheezing Gastrointestinal: Nausea, Abdominal Pain, Diarrhea. negative: Vomiting, Constipation, Melena, Hematochezia, Other Genitourinary: negative: Dysuria, Frequency, Incontinence, Hematuria, Retention , Other Musculoskeletal: negative: Neck Pain, Shoulder Pain, Arm Pain, Back Pain, Hand Pain, Leg Pain, Foot Pain, Other Neurological: negative: Weakness, Numbness, Incoordination, Change in Speech, Confusion, Seizures, Other - Medications/Allergies Allergies/Adverse Reactions: Allergies Allergy/AdvReac Type Severity Reaction Status Date / Time No Known Allergies Allergy Verified 05/19/17 20:35 Medications: Current Medications Acetaminophen (Tylenol) 650 mg PO Q4H PRN PRN Reason: Headache/Fever or Pain Hydrocodone Bitart/Acetaminophen ([place] 10/325) 1 tab PO Q6H PRN PRN Reason: Moderate Pain (4-6) Last Admin: 05/20/17 18:45 Dose: 1 tab Al Hydroxide/Mg Hydroxide (Maalox) 30 ml PO QIDPRN PRN PRN Reason: Heartburn or Indigestion Albuterol Sulfate (Albuterol Sulfate) 1.25 mg NEB [id number] PRN PRN Reason: sob Aspirin (Ecotrin) 81 mg PO DAILY [facility] Last Admin: 05/21/17 08:31 Dose: 81 mg Atorvastatin Calcium (Lipitor) 40 mg PO HS [facility] Last Admin: 05/20/17 19:40 Dose: 40 mg Carvedilol (Coreg) 12.5 mg PO BID [facility] Last Admin: 05/21/17 08:30 Dose: 12.5 mg Clopidogrel Bisulfate (Plavix) 75 mg PO DAILY [facility] Last Admin: 05/21/17 08:30 Dose: 75 mg Docusate Sodium (Colace) 100 mg PO BID [facility] Last Admin: 05/21/17 08:33 Dose: Not Given Enoxaparin Sodium (Lovenox) 40 mg SC 0900 [facility] Last Admin: 05/21/17 08:32 Dose: 40 mg Gabapentin (Neurontin) 300 mg PO TID [facility] Last Admin: 05/21/17 08:30 Dose: 300 mg Guaifenesin/Dextromethorphan (Robitussin Dm) 15 ml PO Q4H PRN PRN Reason: Cough Cefepime HCl 1 gm/Miscellaneous Medication 1 each/ Sterile Water 10 mls @ 120 mls/hr SLOW IVP 0600,1800 [facility] Last Admin: 05/21/17 06:30 Dose: 10 mls Nitroglycerin (Nitrostat) 0.4 mg SL Q5MIN PRN PRN Reason: Chest Pain Ondansetron HCl (Zofran) 4 mg IVP Q6H PRN PRN Reason: Nausea/Vomiting Last Admin: 05/20/17 23:07 Dose: 4 mg Pantoprazole Sodium (Protonix) 40 mg PO DAILY [facility] Last Admin: 05/21/17 08:30 Dose: 40 mg Sodium Chloride (Flush - Normal Saline) 10 ml IVF Q12HR [facility] Last Admin: 05/21/17 08:38 Dose: 10 ml Sodium Chloride (Flush - Normal Saline) 10 ml IVF PRN PRN PRN Reason: Saline Flush
[2017-05-21] MEDS: HYDROcodone/Acetaminophen 10/325 mg Tablet PO PRN (21:12)
[2017-05-21] MEDS: Atorvastatin Calcium 40 MG TAB PO SCH (21:13)
[2017-05-22] MEDS: Cefepime 1 GM, Admixture Fee 1 EACH in Sterile Water 10 ML SLOW IVP SCH ×2 (05:59→18:16)
[2017-05-22 06:42] LABS: Hemoglobin 9.9 g/dL (12.0-16.0); Mean Corpuscular HGB CONC 32.6 g/dL (32.0-36.0); Mean Corpuscular Hemoglobin 31.6 pg (27.0-31.0); Mean Corpuscular Volume 97.1 fl (81.0-99.0); Mean Platelet Volume 7.8 fL (7.4-10.4); Platelet Count 136 thou/uL (130-400); RBC Distribution Width 14.5 % (11.5-14.5); Red Blood Cell (RBC) Count 3.12 mill/uL (4.20-5.40)
[2017-05-22 06:54] LABS: Anion Gap 10 mmol/L (10-20); BUN (Urea Nitrogen) 8 mg/dL (9.8-20.1); Calc. Creatinine Clearance 73 mL/min (70-130); Calcium 8.9 mg/dL (7.8-10.44); Carbon Dioxide 24 mmol/L (23-31); Chloride 107 mmol/L (98-107); Estimated GFR-MDRD 87; Glucose 79 mg/dL (83-110); Potassium 3.6 mmol/L (3.5-5.1); Sodium 137 mmol/L (136-145)
[2017-05-22 07:10] LABS: Band 17 % (5-11); Eosinophils 1 % (0-10); Lymphocytes 14 % (21-51); MDiff Complete? YES; Metamyelocyte 1 % (0-0); Monocytes 10 % (0-10); Myelocyte 2 % (0-0); Neutrophil 46 % (42-75); PLT Morphology Comment Appears Adequate; Polychromasia SLIGHT = 2-3 cells (100X) (0-2/hpf); Reactive Lymphocytes 9 % (0-10); Toxic Granulation SLIGHT
[2017-05-22] MEDS: Aspirin 81 mg Enteric Coated Tablet PO SCH (10:28)
[2017-05-22] MEDS: Carvedilol 6.25 MG TAB PO SCH ×2 (10:29→21:24)
[2017-05-22] MEDS: Enoxaparin Sodium 40 MG/0.4 ML SYRINGE SC SCH (10:30)
[2017-05-22] MEDS: Clopidogrel Bisulfate 75 MG TAB PO SCH (10:30)
[2017-05-22] MEDS: Docusate 100 MG CAP PO SCH ×2 (10:30→21:25)
[2017-05-22] MEDS: Gabapentin 300 MG CAP PO SCH ×3 (10:31→21:25)
[2017-05-22] MEDS: HYDROcodone/Acetaminophen 10/325 mg Tablet PO PRN ×2 (10:43→19:01)
--- NOTE | 2017-05-22 14:12 | PQF ---
CLINICAL DOCUMENTATION IMPROVEMENT CLARIFICATION FORM: ICD-10 Updated PLEASE DO AN ADDENDUM TO THE PROGRESS NOTE WITH ANY DOCUMENTATION UPDATES OR ADDITIONS AND CARRY THROUGH TO DC SUMMARY. THANK YOU. DATE: 05/22 ATTN: DR. Sean JAIN Please exercise your independent, professional judgment in responding to the clarification form. Clinical indicators are provided on the bottom of this form for your review. Please check appropriate box(s): Pancytopenia due to: [ X ] Chemotherapy/antineoplastic drugs [ ] Other drug-induced (please specify if known): [ ] Other diagnosis [ ] Unable to determine For continuity of documentation, please document condition throughout progress notes and discharge summary. Thank You. CLINICAL INDICATORS - SIGNS / SYMPTOMS / LABS WBC: 1.4 RBC: 3.26 H/H: 10.6/31.5 FEVER: 104.5 (R) (DAY OF ADMIT, 05/19) ATTENDING PHYSICIAN PN 05/21: DX/PLAN: 3. PANCYTOPENIA RISK FACTORS: METASTATIC COLON CANCER CHEMOTHERAPY TREATMENT: ONCOLOGY CONSULT THANK YOU! Hannah (This form is maintained as a part of the permanent medical record) 2014 [employer] All Rights Reserved Hannah Toney RN, BSN [email or web address] Office: [phone] [facility]
--- NOTE | 2017-05-22 14:25 | PDOC.PN ---
- Subjective Encounter Start Date: 05/22/17 Encounter Start Time: 14:24 Subjective: feels much better today.feels rachel he her is cloudy today -: apettite impoved - Objective Resuscitation Status: Resuscitation Status FULL:Full Resuscitation MAR Reviewed: Yes Vital Signs & Weight: Vital Signs (12 hours) Temp Pulse Resp BP BP Pulse Ox 05/22/17 10:29 120/60 05/22/17 08:00 98.4 F 74 16 98 05/22/17 07:15 98.4 F 74 16 119/56 L 98 Weight Weight 133 lb I&O: 05/21/17 05/22/17 05/23/17 06:59 06:59 06:59 Intake Total 1961 430 Balance 1961 430 Result Diagrams: 05/22/17 06:05 05/22/17 06:05 Additional Labs: Microbiology 05/19/17 15:53 Urine clean catch Urine Culture - Final Klebsiella pneumoniae ssp pneu 05/19/17 14:50 Nasal swab Influenza Types A,B Direct EIA - Final 05/19/17 15:01 Venous blood - Right Hand Blood Culture - Preliminary NO GROWTH AT 48 HOURS 05/19/17 15:01 Venous blood - Right Arm Blood Culture - Preliminary NO GROWTH AT 48 HOURS Phys Exam - Physical Examination Constitutional: NAD HEENT: PERRLA, moist MMs, sclera anicteric, oral pharynx no lesions Neck: no JVD Respiratory: no wheezing, no rales, no rhonchi, clear to auscultation bilateral Cardiovascular: RRR, no significant murmur Gastrointestinal: soft, non-tender, no distention, positive bowel sounds Musculoskeletal: no edema, pulses present Neurological: non-focal, normal sensation, moves all 4 limbs Psychiatric: normal affect, A&O x 3 Skin: no rash Dx/Plan (1) Neutropenic fever Code(s): D70.9 - NEUTROPENIA, UNSPECIFIED; R50.81 - FEVER PRESENTING WITH CONDITIONS CLASSIFIED ELSEWHERE Status: Acute (2) UTI (urinary tract infection) Status: Acute Qualifiers: Urinary tract infection type: acute cystitis Hematuria presence: without hematuria Qualified Code(s): N30.00 - Acute cystitis without hematuria Comment: [place] on Cx.pope sensitive except Nitrofurantoin (3) Pancytopenia Code(s): D61.818 - OTHER PANCYTOPENIA Status: Acute Comment: ChemoRx induced (4) Sepsis Code(s): A41.9 - SEPSIS, UNSPECIFIED ORGANISM Status: Acute Qualifiers: Sepsis type: sepsis due to unspecified organism Qualified Code(s): A41.9 - Sepsis, unspecified organism (5) CAD (coronary artery disease) Code(s): I25.10 - ATHSCL HEART DISEASE OF [place] CORONARY ARTERY W/O ANG PCTRS Status: Chronic Qualifiers: Coronary Disease-Associated Artery/Lesion type: bypass graft [place] vs. transplanted heart: [place] heart Associated angina: without angina Qualified Code(s): I25.810 - Atherosclerosis of coronary artery bypass graft(s) without angina pectoris Comment: h/o CABG. Last Cath in 2014 Dr Siegel (6) Colon cancer Code(s): C18.9 - MALIGNANT NEOPLASM OF COLON, UNSPECIFIED Status: Chronic Qualifiers: Colon location: unspecified part of colon Qualified Code(s): C18.9 - Malignant neoplasm of colon, unspecified (7) Dyslipidemia Code(s): E78.5 - HYPERLIPIDEMIA, UNSPECIFIED Status: Chronic (8) Hypertension Code(s): I10 - ESSENTIAL (PRIMARY) HYPERTENSION Status: Chronic Qualifiers: Hypertension type: essential hypertension Qualified Code(s): I10 - Essential (primary) hypertension (9) Protein-calorie malnutrition, moderate Code(s): E44.0 - MODERATE PROTEIN-CALORIE MALNUTRITION Status: Chronic - Plan PT/OT, 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 -: Larissa DECKER soon once SNU arranged. -: cont empiric ABx for now * . Review of Systems - Review of Systems Constitutional: weakness, malaise. negative: fever, chills, sweats, other Respiratory: negative: Cough, Dry, Shortness of Breath, Hemoptysis, SOB with Excertion, Pleuritic Pain, Sputum, Wheezing Cardiovascular: negative: chest pain, palpitations, orthopnea, paroxysmal nocturnal dyspnea, edema, light headedness, other Gastrointestinal: negative: Nausea, Vomiting, Abdominal Pain, Diarrhea, Constipation, Melena, Hematochezia, Other Genitourinary: negative: Dysuria, Frequency, Incontinence, Hematuria, Retention , Other Musculoskeletal: negative: Neck Pain, Shoulder Pain, Arm Pain, Back Pain, Hand Pain, Leg Pain, Foot Pain, Other Neurological: negative: Weakness, Numbness, Incoordination, Change in Speech, Confusion, Seizures, Other - Medications/Allergies Allergies/Adverse Reactions: Allergies Allergy/AdvReac Type Severity Reaction Status Date / Time No Known Allergies Allergy Verified 05/19/17 20:35 Medications: Current Medications Acetaminophen (Tylenol) 650 mg PO Q4H PRN PRN Reason: Headache/Fever or Pain Hydrocodone Bitart/Acetaminophen ([place] 10/325) 1 tab PO Q6H PRN PRN Reason: Moderate Pain (4-6) Last Admin: 05/22/17 10:43 Dose: 1 tab Al Hydroxide/Mg Hydroxide (Maalox) 30 ml PO QIDPRN PRN PRN Reason: Heartburn or Indigestion Albuterol Sulfate (Albuterol Sulfate) 1.25 mg NEB [id number] PRN PRN Reason: sob Aspirin (Ecotrin) 81 mg PO DAILY [facility] Last Admin: 05/22/17 10:28 Dose: 81 mg Atorvastatin Calcium (Lipitor) 40 mg PO HS [facility] Last Admin: 05/21/17 21:13 Dose: 40 mg Carvedilol (Coreg) 12.5 mg PO BID [facility] Last Admin: 05/22/17 10:29 Dose: 12.5 mg Clopidogrel Bisulfate (Plavix) 75 mg PO DAILY [facility] Last Admin: 05/22/17 10:30 Dose: 75 mg Docusate Sodium (Colace) 100 mg PO BID [facility] Last Admin: 05/22/17 10:30 Dose: Not Given Enoxaparin Sodium (Lovenox) 40 mg SC 0900 [facility] Last Admin: 05/22/17 10:30 Dose: 40 mg Gabapentin (Neurontin) 300 mg PO TID [facility] Last Admin: 05/22/17 10:31 Dose: 300 mg Guaifenesin/Dextromethorphan (Robitussin Dm) 15 ml PO Q4H PRN PRN Reason: Cough Cefepime HCl 1 gm/Miscellaneous Medication 1 each/ Sterile Water 10 mls @ 120 mls/hr SLOW IVP 0600,1800 [facility] Last Admin: 05/22/17 05:59 Dose: 10 mls Nitroglycerin (Nitrostat) 0.4 mg SL Q5MIN PRN PRN Reason: Chest Pain Ondansetron HCl (Zofran) 4 mg IVP Q6H PRN PRN Reason: Nausea/Vomiting Last Admin: 05/20/17 23:07 Dose: 4 mg Pantoprazole Sodium (Protonix) 40 mg PO DAILY [facility] Last Admin: 05/22/17 10:31 Dose: 40 mg Sodium Chloride (Flush - Normal Saline) 10 ml IVF Q12HR [facility] Last Admin: 05/22/17 10:32 Dose: 10 ml Sodium Chloride (Flush - Normal Saline) 10 ml IVF PRN PRN PRN Reason: Saline Flush
[2017-05-22] MEDS: Atorvastatin Calcium 40 MG TAB PO SCH (21:25)
[2017-05-23] MEDS: HYDROcodone/Acetaminophen 10/325 mg Tablet PO PRN ×3 (05:08→21:17)
[2017-05-23] MEDS: Cefepime 1 GM, Admixture Fee 1 EACH in Sterile Water 10 ML SLOW IVP SCH ×2 (06:19→17:38)
[2017-05-23] MEDS: Aspirin 81 mg Enteric Coated Tablet PO SCH (08:16)
[2017-05-23] MEDS: Carvedilol 6.25 MG TAB PO SCH ×2 (08:16→21:12)
[2017-05-23] MEDS: Clopidogrel Bisulfate 75 MG TAB PO SCH (08:17)
[2017-05-23] MEDS: Enoxaparin Sodium 40 MG/0.4 ML SYRINGE SC SCH (08:19)
[2017-05-23] MEDS: Gabapentin 300 MG CAP PO SCH ×3 (08:19→21:11)
[2017-05-23] MEDS: Docusate 100 MG CAP PO SCH ×2 (08:19→21:11)
[2017-05-23] MEDS: Acetaminophen 325 MG TAB PO PRN ×2 (10:55→17:37)
--- NOTE | 2017-05-23 13:39 | PDOC.PN ---
- Subjective Encounter Start Date: 05/23/17 Encounter Start Time: 13:38 Subjective: feels much better today.walked further w PT & ate better -: AP under control.no N/V - Objective Resuscitation Status: Resuscitation Status FULL:Full Resuscitation MAR Reviewed: Yes Vital Signs & Weight: Vital Signs (12 hours) Temp Pulse Resp BP BP Pulse Ox 05/23/17 08:16 108/60 05/23/17 08:00 98.4 F 79 16 95 05/23/17 07:25 98.4 F 79 16 106/54 L 95 Weight Weight 133 lb I&O: 05/22/17 05/23/17 05/24/17 06:59 06:59 06:59 Intake Total 430 720 Output Total 1 Balance 430 719 Result Diagrams: 05/22/17 06:05 05/22/17 06:05 Additional Labs: Microbiology 05/19/17 15:53 Urine clean catch Urine Culture - Final Klebsiella pneumoniae ssp pneu 05/19/17 14:50 Nasal swab Influenza Types A,B Direct EIA - Final 05/19/17 15:01 Venous blood - Right Hand Blood Culture - Preliminary NO GROWTH AT 48 HOURS 05/19/17 15:01 Venous blood - Right Arm Blood Culture - Preliminary NO GROWTH AT 48 HOURS Phys Exam - Physical Examination Constitutional: NAD HEENT: PERRLA, moist MMs, sclera anicteric, oral pharynx no lesions, 2+ tonsils Neck: no nodes, no JVD, supple, full ROM Respiratory: no wheezing, no rales, no rhonchi, clear to auscultation bilateral Cardiovascular: RRR, no significant murmur, no rub, gallop Gastrointestinal: soft, non-tender, no distention, positive bowel sounds Musculoskeletal: no edema, pulses present Neurological: non-focal, normal sensation, moves all 4 limbs Psychiatric: normal affect, A&O x 3 Dx/Plan (1) Neutropenic fever Code(s): D70.9 - NEUTROPENIA, UNSPECIFIED; R50.81 - FEVER PRESENTING WITH CONDITIONS CLASSIFIED ELSEWHERE Status: Resolved (2) UTI (urinary tract infection) Status: Acute Qualifiers: Urinary tract infection type: acute cystitis Hematuria presence: without hematuria Qualified Code(s): N30.00 - Acute cystitis without hematuria Comment: [place] on Cx.pope sensitive except Nitrofurantoin (3) Pancytopenia Code(s): D61.818 - OTHER PANCYTOPENIA Status: Resolved Comment: ChemoRx induced (4) Sepsis Code(s): A41.9 - SEPSIS, UNSPECIFIED ORGANISM Status: Resolved Qualifiers: Sepsis type: sepsis due to unspecified organism Qualified Code(s): A41.9 - Sepsis, unspecified organism (5) CAD (coronary artery disease) Code(s): I25.10 - ATHSCL HEART DISEASE OF [place] CORONARY ARTERY W/O ANG PCTRS Status: Chronic Qualifiers: Coronary Disease-Associated Artery/Lesion type: bypass graft [place] vs. transplanted heart: [place] heart Associated angina: without angina Qualified Code(s): I25.810 - Atherosclerosis of coronary artery bypass graft(s) without angina pectoris Comment: h/o CABG. Last Cath in 2014 Dr Siegel (6) Colon cancer Code(s): C18.9 - MALIGNANT NEOPLASM OF COLON, UNSPECIFIED Status: Chronic Qualifiers: Colon location: unspecified part of colon Qualified Code(s): C18.9 - Malignant neoplasm of colon, unspecified (7) Dyslipidemia Code(s): E78.5 - HYPERLIPIDEMIA, UNSPECIFIED Status: Chronic (8) Hypertension Code(s): I10 - ESSENTIAL (PRIMARY) HYPERTENSION Status: Chronic Qualifiers: Hypertension type: essential hypertension Qualified Code(s): I10 - Essential (primary) hypertension (9) Protein-calorie malnutrition, moderate Code(s): E44.0 - MODERATE PROTEIN-CALORIE MALNUTRITION Status: Chronic - Plan continue antibiotics, PT/OT, out of bed/ambulate, DVT proph w/SCDs cont IV ABx.Awaiting placement at [facility] for rehab -: am labs. WBC counts have improved -: supportive care -: HD stable * . Review of Systems - Review of Systems Constitutional: weakness, malaise ENT: negative: Ear Pain, Ear Discharge, Nose Pain, Nose Discharge, Nose Congestion, Mouth Pain, Mouth Swelling, Throat Pain, Throat Swelling, Other Respiratory: negative: Cough, Dry, Shortness of Breath, Hemoptysis, SOB with Excertion, Pleuritic Pain, Sputum, Wheezing Cardiovascular: negative: chest pain, palpitations, orthopnea, paroxysmal nocturnal dyspnea, edema, light headedness, other Gastrointestinal: negative: Nausea, Vomiting, Abdominal Pain, Diarrhea, Constipation, Melena, Hematochezia, Other Genitourinary: negative: Dysuria, Frequency, Incontinence, Hematuria, Retention , Other Musculoskeletal: negative: Neck Pain, Shoulder Pain, Arm Pain, Back Pain, Hand Pain, Leg Pain, Foot Pain, Other Neurological: negative: Weakness, Numbness, Incoordination, Change in Speech, Confusion, Seizures, Other - Medications/Allergies Allergies/Adverse Reactions: Allergies Allergy/AdvReac Type Severity Reaction Status Date / Time No Known Allergies Allergy Verified 05/19/17 20:35 Medications: Current Medications Acetaminophen (Tylenol) 650 mg PO Q4H PRN PRN Reason: Headache/Fever or Pain Last Admin: 05/23/17 10:55 Dose: 650 mg Hydrocodone Bitart/Acetaminophen ([place] 10/325) 1 tab PO Q6H PRN PRN Reason: Moderate Pain (4-6) Last Admin: 05/23/17 05:08 Dose: 1 tab Al Hydroxide/Mg Hydroxide (Maalox) 30 ml PO QIDPRN PRN PRN Reason: Heartburn or Indigestion Albuterol Sulfate (Albuterol Sulfate) 1.25 mg NEB [id number] PRN PRN Reason: sob Aspirin (Ecotrin) 81 mg PO DAILY [facility] Last Admin: 05/23/17 08:16 Dose: 81 mg Atorvastatin Calcium (Lipitor) 40 mg PO HS [facility] Last Admin: 05/22/17 21:25 Dose: 40 mg Carvedilol (Coreg) 12.5 mg PO BID [facility] Last Admin: 05/23/17 08:16 Dose: 12.5 mg Clopidogrel Bisulfate (Plavix) 75 mg PO DAILY [facility] Last Admin: 05/23/17 08:17 Dose: 75 mg Docusate Sodium (Colace) 100 mg PO BID [facility] Last Admin: 05/23/17 08:19 Dose: Not Given Enoxaparin Sodium (Lovenox) 40 mg SC 0900 [facility] Last Admin: 05/23/17 08:19 Dose: 40 mg Gabapentin (Neurontin) 300 mg PO TID [facility] Last Admin: 05/23/17 08:19 Dose: 300 mg Guaifenesin/Dextromethorphan (Robitussin Dm) 15 ml PO Q4H PRN PRN Reason: Cough Cefepime HCl 1 gm/Miscellaneous Medication 1 each/ Sterile Water 10 mls @ 120 mls/hr SLOW IVP 0600,1800 [facility] Last Admin: 05/23/17 06:19 Dose: 10 mls Nitroglycerin (Nitrostat) 0.4 mg SL Q5MIN PRN PRN Reason: Chest Pain Ondansetron HCl (Zofran) 4 mg IVP Q6H PRN PRN Reason: Nausea/Vomiting Last Admin: 05/20/17 23:07 Dose: 4 mg Pantoprazole Sodium (Protonix) 40 mg PO DAILY [facility] Last Admin: 05/23/17 08:19 Dose: 40 mg Sodium Chloride (Flush - Normal Saline) 10 ml IVF Q12HR [facility] Last Admin: 05/23/17 08:20 Dose: 10 ml Sodium Chloride (Flush - Normal Saline) 10 ml IVF PRN PRN PRN Reason: Saline Flush
[2017-05-23] MEDS ORDERED: Methyl Salicylate/Menthol 85 GM TUBE TOP PRN (17:56)
[2017-05-23] MEDS: Atorvastatin Calcium 40 MG TAB PO SCH (21:12)
[2017-05-24] MEDS: Cefepime 1 GM, Admixture Fee 1 EACH in Sterile Water 10 ML SLOW IVP SCH ×2 (05:45→18:06)
[2017-05-24] MEDS: HYDROcodone/Acetaminophen 10/325 mg Tablet PO PRN ×3 (07:01→19:57)
[2017-05-24] MEDS: Aspirin 81 mg Enteric Coated Tablet PO SCH (09:16)
[2017-05-24] MEDS: Gabapentin 300 MG CAP PO SCH ×3 (09:16→19:57)
[2017-05-24] MEDS: Clopidogrel Bisulfate 75 MG TAB PO SCH (09:16)
[2017-05-24] MEDS: Docusate 100 MG CAP PO SCH ×2 (09:16→19:59)
[2017-05-24] MEDS: Enoxaparin Sodium 40 MG/0.4 ML SYRINGE SC SCH (09:16)
[2017-05-24] MEDS: Carvedilol 6.25 MG TAB PO SCH ×2 (09:16→19:58)
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
[2017-05-24 19:51] VITALS: BP 135/63; TEMP 98.9
[2017-05-24] MEDS: Atorvastatin Calcium 40 MG TAB PO SCH (19:57)
--- NOTE | 2017-05-25 00:27 | DIS ---
DATE OF ADMISSION: 05/19/2017. DATE OF DISCHARGE: 05/24/2017. PRIMARY CARE PHYSICIAN: Celena Roy MD DISCHARGE DISPOSITION: [facility] bed for rehabilitation. DISCHARGE DIAGNOSES: 1. Neutropenic fever. 2. Sepsis secondary to [place] urinary tract infection. 3. Urinary tract infection. 4. Pancytopenia due to chemotherapy. 5. Coronary artery disease. 6. Metastatic colon cancer. 7. Dyslipidemia. 8. Hypertension. 9. Moderate protein-calorie malnutrition. DISCHARGE MEDICATIONS: New medication: Cefdinir 300 mg p.o. b.i.d. for 5 more days. Resume home me dications as follows: Nitroglycerin sublingual as needed, [place] as needed, gabapentin 300 mg p.o. t. i.d., Plavix 75 mg daily, Zyrtec as needed, omeprazole 20 mg daily, aspirin 81 mg daily, Coreg 12.5 m g p.o. b.i.d., lisinopril 20 mg daily, atorvastatin 40 mg daily, albuterol nebulizer as needed, Tylen ol as needed. CONSULTATION IN-HOUSE: Oncology, Dr. Jiang. PROCEDURE DONE IN THE HOSPITAL: Include chest x-ray. HISTORY OF PRESENT ILLNESS: Ms. Mcfarlane is a very pleasant 71-year-old female with known history of c olon cancer, who presented to the emergency room with complaints of fever and lethargy. She was extr mary grace weak on presentation. She has had a recent chemotherapy and her white count was 1.4 on present ation. She was admitted with a presumptive diagnosis of neutropenic fever. Chest x-ray did not show any acute infiltrate, but showed metastatic disease. Influenza A and B antigens were negative. She was pancultured and was started on IV fluids and empiric IV antibiotics, and Oncology was consulted. HOSPITAL COURSE: The patient's urine culture did turn positive for Klebsiella pneumoniae, which was pansensitive except for nitrofurantoin. She was treated with cefepime in the hospital, which was lat er changed to oral antibiotic on discharge. The patient's white blood cell count was followed and she was started on filgrastim, which helped imp rove her counts and her discharge WBC is 11. She is afebrile and hemodynamically asymptomatic and st able. Rehabilitation was arranged for her and the patient agreed for same. She is going to be going to [facility] bed, which has accepted the patient. The patient was seen and examined prior to discharge. Please see hospitalist progress note from y's date for further detail including [id number] interaction. The patient was found to have worsening of her metastatic colon cancer and Oncology did not continue the same chemotherapy. She will follow up with Dr. Lebron as an outpatient to come up with a new pl an for this new worsening of her cancer. This was discussed with the patient, who verbalized underst anding. At this time, she is being discharged to rehabilitation in a stable condition. Total time spent in the discharge of this patient is 32 minutes including [id number] interaction.
== END 2017-05-24 20:15 | disposition swing bed (61) | DRG 871 ==
LOC: ERS 14:18 → ONC 17:16
PROVIDERS: ADMIT Internal Medicine; ATTEND Internal Medicine
DX: A41.59 Other Gram-negative sepsis (principal); D61.810 Antineoplastic chemotherapy induced pancytopenia; D70.9 Neutropenia, unspecified; E44.0 Moderate protein-calorie malnutrition; C18.9 Malignant neoplasm of colon, unspecified; C78.00 Secondary malignant neoplasm of unspecified lung; N39.0 Urinary tract infection, site not specified; I25.810 Atherosclerosis of coronary artery bypass graft(s) without angina pectoris; T45.1X5A Adverse effect of antineoplastic and immunosuppressive drugs, initial encounter; E78.5 Hyperlipidemia, unspecified; I10 Essential (primary) hypertension; Z68.22 Body mass index [BMI] 22.0-22.9, adult; R50.81 Fever presenting with conditions classified elsewhere; E87.6 Hypokalemia; Z79.02 Long term (current) use of antithrombotics/antiplatelets; Z79.82 Long term (current) use of aspirin; Z79.899 Other long term (current) drug therapy; Z95.1 Presence of aortocoronary bypass graft
CPT/HCPCS: 36415; 71045; 80048; 80053; 80202; 81003; 82553; 83605; 84484; 85025; 85060; 87040; 87077; 87086; 87186; 93005; 96360; 96361; 96365; 96375; A4216; G8978-GP-CI; G8979-GP-CI; J0692; J1442; J1650; J2405; J3370; J7050